=== PATIENT | male | born 1945 | race Caucasian/White ===

== ENCOUNTER 2021-11-19 21:32 | Observation (INO) ==
[2021-11-19 21:55] LABS: ABS Eosinophils 0.1 10^3/ul (0-0.6); ABS Lymphocytes 1.3 10^3/ul (1.0-4.8); ABS Monocytes 0.7 10^3/ul (0-0.8); Eosinophil % 0.9 %; Hematocrit 41 % (42-52); Hemoglobin 14.1 g/dL (14.0-18.0); Lymphocyte % 13.8 %; Mean Corpuscular HGB Conc 34 g/dL (31-36); Mean Corpuscular Hemoglobin 29 pg (27-31); Mean Corpuscular Volume 85 fL (80-94); Mean Platelet Volume 8.4 fL (7.4-10.4); Platelet Count 241 10^3/uL (150-450); Red Blood Count 4.86 10^6 /uL (4.18-5.48); Red Cell Distribution Width 14 % (10-15); White Blood Count 9.1 10^3/uL (3.5-10.8)
[2021-11-19 22:09] LABS: INR 1.42 (0.86-1.15)
[2021-11-19 22:13] LABS: Albumin 3.8 g/dL (3.2-5.2); Albumin/Globulin Ratio 1.5 (1-3); Calcium 9.4 mg/dL (8.6-10.3); Globulin 2.6 g/dL (2-4); Potassium 3.8 mmol/L (3.5-5.0); Total Bilirubin 0.9 mg/dL (0.2-1.0); Total Protein 6.4 g/dL (6.4-8.9); eGFR CKD-EPI 62.8 (>60)
[2021-11-19 22:15] LABS: Troponin I 0.01 ng/mL (<0.03)
[2021-11-20] MEDS ORDERED: Dextrose 50% Syringe 50 ml 25 GM/50 ML SYRINGE IV PUSH PRN (04:14)
[2021-11-20 05:47] LABS: Rapid COVID-19 Molecular Undetected (Undetected)
[2021-11-20] MEDS ORDERED: Regadenoson 0.4 MG/5 ML SYRINGE ONE (07:55)
[2021-11-20] MEDS ORDERED: Aminophylline 25 MG/ML VIAL ONE (07:56)
[2021-11-20] MEDS ORDERED: Coenzyme Q10 CAP (NF) 100MG PO SCH (09:00)
[2021-11-20 14:09] VITALS: BP 133/68
== END 2021-11-20 14:40 | disposition home or self-care (01) ==
LOC: EDHOLD 21:32 → ED 21:32 → SUATTDRO 11-20 04:09 → EDHOLD 11-20 07:17 → MEDTELE 11-20 09:44
PROVIDERS: ADMIT Internal Medicine; ATTEND Hospitalist